=== PATIENT | female | born 1985 | race African-American/Black ===

== ENCOUNTER 2017-05-21 09:28 | Observation (INO) | payer MEDICAID ==
[2017-05-21] MEDS ORDERED: PREN-96 PO (12:04)
[2017-05-21] MEDS ORDERED: IRONTAB34 OR (12:04)
== END 2017-05-21 12:00 | disposition home or self-care (01) | DRG 566 ==
LOC: LDRP 09:28
PROVIDERS: ADMIT Specialist; ATTEND Specialist
DX: O36.5930 Maternal care for other known or suspected poor fetal growth, third trimester, not applicable or unspecified (principal); Z3A.36 36 weeks gestation of pregnancy
CPT/HCPCS: 59025; 76818; 81002; G0378

== ENCOUNTER 2017-05-25 14:48 | Inpatient (IN) | payer MEDICAID ==
[~2017-05-25] VITALS: Ht 165.1 cm; Wt 78.0 kg
[~2017-05-25 14:48] MED LIST: IRONTAB34 OR; PREN-96 PO
[2017-05-25] MEDS ORDERED: LACT. RINGERS/OXYTOCIN 20UNITS 1,000 ML IV SCH (17:35)
[2017-05-25] MEDS ORDERED: NALBUPHINE HCL 10 MG/1ml INJECTION IV PRN (17:45)
[2017-05-25] MEDS ORDERED: DERMOPLAST 60ML BOTTLE TOP PRN (17:45)
[2017-05-25] MEDS ORDERED: WITCH HAZEL-GLYCERIN PAD TOP PRN (17:45)
[2017-05-25] MEDS ORDERED: LIDOCAINE 2%HCL (LOCAL ANESTH.) INJ 20ML MDV IJ PRN (17:45)
[2017-05-25] MEDS ORDERED: PHISODERM TOP SOLN 240ML BTL TOP PRN (17:45)
[2017-05-25] MEDS: LACTATED RINGER'S 1,000 ML IV SCH ×2 (18:30→23:51)
[2017-05-25 18:35] LABS: Basophils # (auto) 0 uL; Eosinophils # (auto) 0.1 uL; Hemoglobin 9.2 g/dL (12.2-16.2); Nucleated Red Blood Cells % 0.1 %
[2017-05-25 18:36] LABS: Basophils % (auto) 0.5 % (0.0-2.0); Eosinophils % (auto) 1.4 % (0.0-7.0); Hematocrit 28.4 % (36.0-46.0); Lymphocytes # (auto) 1.6 uL; Lymphocytes % (auto) 24.6 % (10.0-50.0); Mean Corpuscular Hemoglobin 26.8 pg (28.0-32.0); Mean Corpuscular Hgb Conc. 32.2 g/dL (32.0-36.0); Mean Corpuscular Volume 83.2 fL (80.0-100.0); Mean Platelet Volume 8.6 fL (6.9-10.8); Monocytes # (auto) 0.4 uL; Monocytes % (auto) 6.8 % (0.0-12.0); Neutrophils # (auto) 4.2 uL; Neutrophils % (auto) 66.7 % (37.0-80.0); Platelet Count (auto) 191 10^3/uL (140-450); Red Cell Distribution Width 17.2 % (11.8-14.3); White Blood Cell 6.3 10^3/uL (4.4-10.8)
[2017-05-25 18:39] LABS: Albumin 2.3 g/dL (3.4-5.0); BUN/Creatinine Ratio 5.4; INR 0.92 (0.9-1.15); Partial Thromboplastin Time 24.7 sec (22.64-33.71); Potassium 3.7 mmol/L (3.5-5.1)
[2017-05-25 18:42] LABS: Bilirubin, Total 0.3 mg/dL (0.2-1.0); Total Protein 6.9 g/dL (6.4-8.2)
[2017-05-26] MEDS ORDERED: ACETAMINOPHEN 325 MG TAB PO PRN (01:15)
[2017-05-26] MEDS ORDERED: LACT. RINGERS/OXYTOCIN 20UNITS 1,000 ML IV SCH (02:07)
[2017-05-26 04:00] VITALS: BP 135/83
[2017-05-26 07:30] VITALS: BP 124/80
[2017-05-26] MEDS: IBUPROFEN 600 MG TAB PO PRN ×2 (08:15→23:20)
[2017-05-26 12:30] VITALS: BP 125/81
[2017-05-26 16:30] VITALS: BP 124/84
[2017-05-26] MEDS: LACTATED RINGER'S 1,000 ML IV SCH (18:00)
[2017-05-26 19:33] VITALS: BP 138/85
[2017-05-26 23:44] VITALS: BP 135/93
[2017-05-27 03:57] VITALS: BP 131/78
[2017-05-27] MEDS: IBUPROFEN 600 MG TAB PO PRN (04:40)
[2017-05-27 08:30] VITALS: BP 130/68
[2017-05-27 13:03] VITALS: BP 120/82
== END 2017-05-27 12:50 | disposition home or self-care (01) | DRG 560 ==
LOC: LDRP 14:48 → OBSVTOIN 14:48 → LDRP 05-26 08:39
PROVIDERS: ADMIT Specialist; ATTEND Specialist
PROC: 10E0XZZ Delivery of Products of Conception, External Approach (ICD-10-PCS; principal; 2017-05-26)
PROC: 0HQ9XZZ Repair Perineum Skin, External Approach (ICD-10-PCS; 2017-05-26)
DX: O36.5930 Maternal care for other known or suspected poor fetal growth, third trimester, not applicable or unspecified (principal); O70.0 First degree perineal laceration during delivery; Z37.0 Single live birth; Z3A.37 37 weeks gestation of pregnancy
CPT/HCPCS: 36415; 59025; 59409; 76818; 80053; 80307; 81002; 85025; 85610; 85730; 86850; 86900; 86901; 94762; 96375; J2590